=== PATIENT | female | born 1955 | race Caucasian/White ===

== ENCOUNTER 2020-04-09 11:17 | Outpatient (REF) | payer MEDICARE, SELFPAY | END 2020-04-09 11:18 | disposition home or self-care (01) | LOC: HO.LAB 11:17 | PROVIDERS: Visit Provider Nurse Practitioner Family | DX: J98.8 Other specified respiratory disorders (principal); Z20.822 Contact with and (suspected) exposure to COVID-19 | CPT/HCPCS: 36415; U0003; U0005 ==

== ENCOUNTER 2020-04-18 14:10 | Outpatient (REF) | payer MEDICARE, SELFPAY | END 2020-04-18 14:11 | disposition home or self-care (01) | LOC: HO.LAB 14:10 | PROVIDERS: Visit Provider Nurse Practitioner Family | DX: Z20.822 Contact with and (suspected) exposure to COVID-19 (principal) | CPT/HCPCS: 36415; U0003; U0005 ==

== ENCOUNTER 2022-12-14 08:57 | Day surgery (SDC) | payer MEDICARE, SELFPAY ==
[2022-12-10 11:02] VITALS: BMI 30.9
--- NOTE | 2022-12-11 08:02 | MHC.SHP ---
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 No changes have occurred unless specified. Time Spent With Patient Time: Total time managing care of this patient today ____ minutes.
[2022-12-14] MEDS: Lactated Ringers 500 ML 50 ML IV (10:23)
[2022-12-14 10:24] VITALS: BP 137/75; PULSE 64; RESP 18; TEMP 36.6; O2SAT 97
--- NOTE | 2022-12-14 10:24 | HO.ANESPROP2 ---
[facility] Active Problems Active Problems: All Active Problems (Updated 12/10/22 @ 10:34 by Clarisse Cee RN) Encounter for laboratory testing for COVID-19 virus (Acute) Allergic conjunctivitis (Acute) Respiratory infection (Acute) Otitis externa (Acute) Past Medical History Medical History (Updated 12/10/22 @ 10:34 by Clarisse Cee RN) Anxiety Osteoarthritis Tremor Fecal urgency Crohn's disease Recurrent biliary colic Family History Family history of problems with anesthesia: No Surgical History Surgical History (Updated 12/10/22 @ 10:59 by Clarisse Cee RN) Hx of cholecystectomy History of partial colectomy Hx of colonoscopy History of incisional hernia repair History of Problems with Anesthesia: No Social History Social History (Updated 12/10/22 @ 11:02 by Clarisse Cee RN) Household Members: None Housing: House Are you a primary ambulatory care nurse to a significant other at home: No Do you presently have visiting nurse or other home services: No Patient Tobacco Use Status: Former Tobacco user Quit Date: 1992 Tobacco use type: Cigarette Use of substances other than those prescribed or required for medical reasons: No Have you been hit, kicked, punched, or otherwise hurt by someone within the past year? 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 Sulfa (Sulfonamide Allergy Severe Hives Verified 12/10/22 11:00 Antibiotics) Active Medications: Current Medications Lactated Ringer's (Lr) 500 mls @ 50 mls/hr IV .Q10H IAM Stop: 12/14/22 19:59 Last Admin: 12/14/22 10: Dose: 50 mls/hr Povidone Iodine (Povidone Iodine 5 % Ophth Soln 30 Ml Bottle) 1 appl EYE-LEFT PREOP PRN PRN Reason: Pre-Op Surgical Implant Prophy Home Medications Medication Instructions Recorded Confirmed Last Taken Type azathioprine 50 mg tablet 100 mg PO DAILY 12/10/22 12/10/22 Unknown History bupropion HCl 150 mg tablet,12 hr 150 mg PO BID 12/10/22 12/10/22 Unknown History sustained-release escitalopram oxalate 20 mg tablet 20 mg PO DAILY 12/10/22 12/10/22 Unknown History loperamide 2 mg capsule 2 mg PO BID PRN diarrhea 12/10/22 12/10/22 Unknown History lorazepam 1 mg tablet 1 mg PO BEDTIME 12/10/22 12/10/22 Unknown History Exam Exam Date and Time: December 14, 2022 1024 Height,Weight and Vital Signs: Height 5 ft 5 in Weight 84.368 kg Airway Mallampati Class: Patient Non-Cooperative TM Dist: >3cm Assessment and Plan Assessment Anesthesia Assessment: Anesthesia Plan Discussed and Chart Reviewed Final Anesthetic Review Family History of Problems with Anesthesia: No History of Problems with Anesthesia: No NPO: Yes ASA Class: III Final Preanesthetic Review: No Changes in Pt Med Stat, Meds/Allgs Chart Reviewed, Consent Obtained/Reviewed and Anes Risks/Benef Reviewed Patient Risk: Intermediate Procedure Risk: Low Anesthetic Plan Anesthetic Plan: MAC: Disposition: Standard PACU
[2022-12-14 11:47] VITALS: BP 154/80; PULSE 64; RESP 16; TEMP 36.1; O2SAT 96
[2022-12-14] MEDS: oxyCODONE HCl Immed Release 5 MG TABLET PO (12:18)
--- NOTE | 2022-12-28 08:16 | OP_ITS ---
DATE OF SERVICE: 12/14/2022 SURGEON: Jonathan Jarrett MD PREOPERATIVE DIAGNOSIS: Left upper lid ptosis. POSTOPERATIVE DIAGNOSIS: Left upper lid ptosis. PROCEDURE PERFORMED: Left levator resection. ESTIMATED BLOOD LOSS: COMPLICATIONS: ANESTHESIA: Local with MAC. ASSISTANTS: SPECIMENS: DESCRIPTION OF PROCEDURE: After obtaining informed consent, the patient was brought to the operating room and placed in the supine position. The left eye was prepped and draped in the usual sterile fashion. Attention was directed to the left superior lid crease which was marked centrally 10 mm. Injection of lidocaine was given at that site followed by utilizing a #15-blade to create an incision along the previos marked area. The Alex scissors was then utilized with sharp and blunt dissection to identify the tarsus.Once identified 7-0 Gortex suture was utilized and placed partial thickness through the tarsal plate ensuring the suture was not passed full thickness.. The suture was then passed through the levator. Once the levator was identified and the suture passed through, it was externalized and tied temporarily. The lid was then elevated to match the opposing side. The suture was then permanently tied. The lid was then closed with 6-0 plane suture. Erythromycin was placed on the wound, and the patient will be seen in followup. MD ELY Faust/MODL / [id number] MTDD
== END 2022-12-14 12:32 | disposition home or self-care (01) ==
PROVIDERS: Visit Provider Ophthalmology
PROC: (CPT 67904; principal; 2022-12-14 11:20)
DX: H02.402 Unspecified ptosis of left eyelid (principal); H02.834 Dermatochalasis of left upper eyelid; H35.09 Other intraretinal microvascular abnormalities; H52.4 Presbyopia; Z79.899 Other long term (current) drug therapy; Z88.1 Allergy status to other antibiotic agents; Z88.2 Allergy status to sulfonamides; Z91.040 Latex allergy status
CPT/HCPCS: 67904; J2250; J3010